=== PATIENT | male | born 1975 | race Caucasian/White ===

== ENCOUNTER 2017-04-25 05:13 | Emergency (ER) | payer BC ==
--- NOTE | 2017-04-25 05:20 | PDOC ---
History of Present Illness - General Stated Complaint: COLD SYMPTOMS Time Seen by Provider: 04/25/17 05:19 History Source: Patient Exam Limitations: No Limitations - History of Present Illness Initial Comments: 04/25/17 06:02 Patient is an otherwise healthy 41 yo male with 2 days of sore throat and a subjective fever at home. Patient states he has had a sore throat and fever, < 100F, for the last two days that feels worse this morning. He also endorses sinus pressure, sub mandibular swelling and 1x vomit yesterday. Vomit was non bloody and contained only food. Patient has been able to tolerate fluids and some food. Denies chest pain, SOB, abdominal pain, diarrhea and constipation. Endorses one sick contact in the home, daughter, along with son who is presenting along with patient. Past History - Past Medical History Allergies/Adverse Reactions: Allergies Allergy/AdvReac Type Severity Reaction Status Date / Time No Known Allergies Allergy Verified 04/25/17 05:34 Home Medications: Ambulatory Orders NK [No Known Home Medication] 04/25/17 Review of Systems - Review of Systems Able to Perform ROS?: Yes Comments:: GEN: Endorses fever and general malaise HEENTM: Endorses sore throat, congestion, swollen sub mandibular LN and sinus pressure; Denies changes in vision, changes in hearing Respiratory: Endorses cough; Denies shortness of breath Cardiac: Denies chest pain, palpitations, lightheadedness, diaphoresis ABD/GI: Endorses nausea and 1x vomiting; Denies abdominal pain, diarrhea, constipation : Denies dysuria, burning on urination, increased frequency of urination Musculoskeletal: Denies muscle and joint pain Integumentary: Denies rashes, bruises Neurological: Denies HUNG, weakness, dizziness All Other Systems Reviewed and Negative Is the patient limited Tunisian proficient: No *Physical Exam - Physical Exam Comments: GENERAL: AAOx3, nourished and generally well appearing, NAD HEAD: NCAT EYES: PERRLA, EOMI, sclera anicteric, conjunctiva clear ENT: hearing grossly normal, TM intact, nares patent, no nasal discharge, mild congestion, MMM, b/l tonsillar erythema and edema NECK: supple, normal ROM, Submandibular LAD, no JVD, no masses RESP: speaking in full sentences, symmetrical chest expansion, no respiratory distress, lungs CTAB HEART: RRR, normal S1-S2, no MRG ABDOMEN: soft, NTND, nl BSx4, no guarding, no rebound, no masses. EXTREMITIES: Normal inspection, Normal ROM, Cap refill 3s. NEUROLOGICAL: CN II-XII grossly intact, normal speech, normal gait, no focal sensorimotor deficits SKIN: warm, dry, normal turgor, no rashes or lesions noted. Medical Decision Making - Medical Decision Making Otherwise healthy 41 yo afebrile male presenting with inflamed posterior tonsils w/o exudates, nasal congestion and sub mandibular LAD. Sick contacts in the home with similar symptoms. Ddx includes but is not pharyngitis (viral vs bacterial) Patient instructed to rest and drink plenty of fluids and follow up with his primary care physician Return precautions given and understood. *DC/Admit/Observation/Transfer Diagnosis at time of Disposition: Viral syndrome - Discharge Dispostion Disposition: HOME Condition at time of disposition: Good Admit: No - Referrals Referrals: Adiel Niño MD [Primary Care Provider] - - Patient Instructions Printed Discharge Instructions: DI for Common Cold, How to Avoid a Cold or Flu Additional Instructions: Drink plenty of fluids. Take Advil or Tylenol for the pain. Sudafed can help with the congestion. Your symptoms may last for a few days. Follow up with your primary physician in the next week Return to the emergency department if your symptoms get significantly worse or your develop any new or concerning symptoms.
[2017-04-25 05:36] VITALS: BP 148/88; PULSE 97; TEMP 99; BMI 26.4
--- NOTE | 2017-04-25 05:43 | PDOC ---
Attending Attestation - Resident Resident Name: Juan Osman - HPI HPI: 04/28/17 07:25 Pt presents to the ED complaining of sore throat, nasal congestion and cough, consistent with viral pharyngitis. - Physicial Exam PE: 04/28/17 07:26 Agree with above exam. Throat has mild erythema with no exudate. lungs are clear. - Medical Decision Making 04/28/17 07:27 Pt presents to the ED complaining of upper respiratory symptoms consnistent with viral URI. Will discharge home.
== END 2017-04-25 06:12 | disposition home or self-care (01) ==
LOC: JER 05:13
DX: B34.9 Viral infection, unspecified (principal)
CPT/HCPCS: 99281-25